=== PATIENT | female | born 1950 | race Caucasian/White ===

== ENCOUNTER 2016-07-25 16:58 | Emergency (ER) | payer OTHER ==
[2016-07-25 17:27] VITALS: BP 133/84; PULSE 79; RESP 18; TEMP 97.9; O2SAT 98
[2016-07-25] MEDS ORDERED: Naproxen 550 mg Tab PO STA (18:11)
[2016-07-25] MEDS ORDERED: Naproxen 550 mg Tab PO ONE (18:13)
--- NOTE | 2016-07-25 18:14 | C.PDOC ---
History Of Present Illness 65 year old female presents to the ED seeking a refill for medications for mid- back pain from a fall in late March 2016. Patient states she was seen in [facility] for the initial injury and given naprosyn. She denies any recent trauma, abdominal pain, or any other complaints at this time. Time Seen by Provider: 07/25/16 17:40 Chief Complaint (Nursing): Back Pain History Per: Patient History/Exam Limitations: no limitations Onset/Duration Of Symptoms: Persistent Current Symptoms Are (Timing): Still Present Quality Of Discomfort: Aching Severity: Mild Previous Symptoms: Back Pain Associated Symptoms: denies: Incontinence, New Weakness, New Numbness Exacerbating Factor(s): Movement Past Medical History Reviewed: Historical Data, Nursing Documentation, Vital Signs Vital Signs: Last Vital Signs Temp 97.9 F 07/25/16 17:25 Pulse 79 07/25/16 17:25 Resp 18 07/25/16 17:25 BP 133/84 07/25/16 17:25 Pulse Ox 98 07/27/16 02:22 - Medical History PMH: CAD, HTN Surgical History: Appendectomy, CABG (9 years ago) Family History: States: Unknown Family Hx - Social History Hx Alcohol Use: No Hx Substance Use: No - Immunization History Hx Tetanus Toxoid Vaccination: Yes Hx Influenza Vaccination: Yes Hx Pneumococcal Vaccination: Yes Review Of Systems Constitutional: Negative for: Fever, Chills, Sweats Gastrointestinal: Negative for: Nausea, Vomiting, Abdominal Pain, Diarrhea Musculoskeletal: Positive for: Back Pain (mid-back pain) Physical Exam - Physical Exam Appears: Non-toxic, No Acute Distress Skin: Warm, Dry Head: Normacephalic Eye(s): bilateral: PERRL, EOMI Ear(s): Bilateral: Normal Neck: Normal ROM Chest: Symmetrical, No Deformity Cardiovascular: Rhythm Regular Respiratory: No Accessory Muscle Use, No Rales, No Rhonchi, No Stridor, No Wheezing Gastrointestinal/Abdominal: Soft, No Tenderness, No Distention, No Guarding, No Rebound Back: Paraspinal Tenderness, Other (parathoracic ) Extremity: Normal ROM, No Tenderness Neurological/Psych: Oriented x3 ED Course And Treatment O2 Sat by Pulse Oximetry: 98 (on RA) Pulse Ox Interpretation: Normal Medical Decision Making Medical Decision Making: On re-exam, the patient reports improvement of symptoms. Lungs are CTA, heart is RRR, ambulatory in the ED with steady gait. Disposition - Disposition Referrals: Pat Peralta MD [Staff Provider] - Disposition: HOME/ ROUTINE Disposition Time: 18:47 Condition: GOOD Additional Instructions: Follow up with the medical doctor within 1-2 days. Return if worsened, Prescriptions: Cyclobenzaprine [Flexeril] 5 mg PO TID #21 tab Naproxen [Naprosyn] 500 mg PO BID #20 tab Instructions: Acute Low Back Pain (ED) Print Language: SAUDI ARABIAN - Clinical Impression Clinical Impression: Low back pain - Scribe Statement The provider has reviewed the documentation as recorded by the Scribe Lenore Cortez All medical record entries made by the Madanibe were at my direction and personally dictated by me. I have reviewed the chart and agree that the record accurately reflects my personal performance of the history, physical exam, medical decision making, and the department course for this patient. I have also personally directed, reviewed, and agree with the discharge instructions and disposition.
== END 2016-07-25 18:59 | disposition home or self-care (01) ==
LOC: C.ER 16:58
DX: M54.5 Low back pain (principal)

== ENCOUNTER 2016-09-21 13:17 | Emergency (ER) | payer MEDICAID, OTHER ==
[2016-09-21 13:26] VITALS: PULSE 78; TEMP 98.2
[2016-09-21] MEDS ORDERED: Naproxen 550 mg Tab PO STA (14:10)
[2016-09-21] MEDS ORDERED: Naproxen 550 mg Tab PO ONE (14:14)
--- NOTE | 2016-09-21 14:34 | RAD ---
HISTORY: upper back pain COMPARISON: 01/28/2015 TECHNIQUE: Chest PA and lateral FINDINGS: LUNGS: Biapical pleural thickening with upper lobe granulomatous changes. Diffuse increased interstitial lung markings. Few scattered nodular densities in both lungs most prominent in the upper lung zones. Right hilar prominence. No gross focal infiltrate or effusion. PLEURA: No significant pleural effusion identified. No pneumothorax apparent. CARDIOVASCULAR: Status post median sternotomy. OSSEOUS STRUCTURES: Degenerative changes in the spine and shoulders. VISUALIZED UPPER ABDOMEN: Normal. OTHER FINDINGS: None. IMPRESSION: Biapical pleural thickening with upper lobe granulomatous changes. Diffuse increased interstitial lung markings. Few scattered nodular densities in both lungs most prominent in the upper lung zones. Right hilar prominence. No gross focal infiltrate or effusion.
--- NOTE | 2016-09-21 14:39 | C.PDOC ---
History Of Present Illness 65 yr old female presents to the ER with complaints of right upper back pain, ongoing for 6 months. Patient states he fell and has been seen several times for the same symptoms but has no follow up with Ortho "because the architectural draftsman didn' t sent me to one". Patient denies new falls, injury, fever, chest pain, SOB, nausea, vomiting, abdominal pain, weakness or numbness. Time Seen by Provider: 09/21/16 13:49 Chief Complaint (Nursing): Upper Extremity Problem/Injury History Per: Patient History/Exam Limitations: no limitations Onset/Duration Of Symptoms: Persistent (6 months ) Past Medical History Reviewed: Historical Data, Nursing Documentation, Vital Signs Vital Signs: Last Vital Signs Temp 98.2 F 09/21/16 14:44 Pulse 78 09/21/16 14:44 Resp 18 09/21/16 14:44 BP 140/76 09/21/16 14:44 Pulse Ox 98 09/21/16 15:09 - Medical History PMH: CAD, HTN Surgical History: Appendectomy, CABG (9 years ago) Family History: States: No Known Family Hx - Social History Hx Alcohol Use: No Hx Substance Use: No - Immunization History Hx Tetanus Toxoid Vaccination: Yes Hx Influenza Vaccination: Yes Hx Pneumococcal Vaccination: Yes Review Of Systems Except As Marked, All Systems Reviewed And Found Negative. Constitutional: Negative for: Fever Cardiovascular: Negative for: Chest Pain Respiratory: Negative for: Shortness of Breath Gastrointestinal: Negative for: Nausea, Vomiting, Abdominal Pain Musculoskeletal: Positive for: Back Pain (Right upper back pain ) Neurological: Negative for: Weakness, Numbness Physical Exam - Physical Exam Appears: Non-toxic, No Acute Distress Skin: Warm, Dry, No Rash Head: Atraumatic, Normacephalic Oral Mucosa: Moist Neck: Normal, Normal ROM, Supple Chest: Symmetrical, No Tenderness Cardiovascular: Rhythm Regular, No Murmur Respiratory: Normal Breath Sounds, No Rales, No Rhonchi, No Stridor, No Wheezing Gastrointestinal/Abdominal: Normal Exam, Soft, No Tenderness, No Guarding, No Rebound Back: Paraspinal Tenderness (Right thoracic paraspinal tenderness around T3 & T4 area. ) Extremity: Normal ROM (Right shoulder ), Capillary Refill (<2), No Deformity, No Swelling Neurological/Psych: Oriented x3, Normal Speech, Normal Motor ED Course And Treatment O2 Sat by Pulse Oximetry: 98 - Other Rad CXR X-Ray: Viewed By Me, Read By Radiologist Interpretation: HISTORY: upper back pain. COMPARISON: 01/28/2015. TECHNIQUE : Chest PA and lateral. FINDINGS: LUNGS: Biapical pleural thickening with upper lobe granulomatous changes. Diffuse increased interstitial lung markings. Few scattered nodular densities in both lungs most prominent in the upper lung zones. Right hilar prominence. No gross focal infiltrate or effusion. PLEURA: No significant pleural effusion identified. No pneumothorax apparent. CARDIOVASCULAR: Status post median sternotomy. OSSEOUS STRUCTURES: Degenerative changes in the spine and shoulders. VISUALIZED UPPER ABDOMEN: Normal. OTHER FINDINGS: None. IMPRESSION: Biapical pleural thickening with upper lobe granulomatous changes. Diffuse increased interstitial lung markings. Few scattered nodular densities in both lungs most prominent in the upper lung zones. Right hilar prominence. No gross focal infiltrate or effusion. Medical Decision Making Medical Decision Making: PLAN: * CXR * Naproxen PO Disposition Counseled Patient/Family Regarding: Studies Performed, Diagnosis, Need For Followup, Rx Given - Disposition Referrals: [facility] [Outside] [facility] [Outside] Fabian Weems III, MD [Staff Provider] - Disposition: HOME/ ROUTINE Disposition Time: 14:40 Condition: STABLE Additional Instructions: USTED NECESITA SEGUIR CON LA ORTOPEDIA PARA LA EVALUACIN ADICIONAL USE MEDICAMENTOS PARA EL DOLOR DEVUELVA A LA MERLY DE EMERGENCIA SI LOS SNTOMAS EMPEORARAN Prescriptions: Naproxen [Naprosyn Tab] 375 mg PO BID PRN #20 tab PRN Reason: pain Instructions: Chronic Back Pain (ED) Print Language: AZERBAIJANI - POA Present On Arrival: None - Clinical Impression Clinical Impression: Chronic upper back pain - Scribe Statement The provider has reviewed the documentation as recorded by the Scribe Kristen Zavala Provider Attestation: All medical record entries made by the Scribe were at my direction and personally dictated by me. I have reviewed the chart and agree that the record accurately reflects my personal performance of the history, physical exam, medical decision making, and the department course for this patient. I have also personally directed, reviewed, and agree with the discharge instructions and disposition.
[2016-09-21 14:44] VITALS: BP 140/76; RESP 18
[2016-09-21 15:10] VITALS: O2SAT 98
== END 2016-09-21 14:44 | disposition home or self-care (01) ==
LOC: C.ER 13:17
DX: M54.9 Dorsalgia, unspecified (principal); G89.29 Other chronic pain; I10 Essential (primary) hypertension

== ENCOUNTER 2017-05-27 12:40 | Emergency (ER) | payer SELFPAY ==
[2017-05-27] MEDS ORDERED: Albuterol-Ipratrop 3 mg / 0.5 (3 ml) UD IH STA (13:08)
[2017-05-27] MEDS ORDERED: Sodium Chloride 0.9% 1,000 ML IV ONE (13:08)
--- NOTE | 2017-05-27 13:10 | C.PDOC ---
History Of Present Illness 66 y/o female presents to ED with complaints of 10 day history of "flu-like symptoms" including fever, headache, cough and congestion. Yannick reports she has been self medicating for symptoms and overall feels better. However, she complains the cough is still present and also complains of upper back pain for 4 days. She states she does have back problems after injury one year ago. Patient has not seen PMD for symptoms secondary to insurance issues. Denies chest pain or SOB. Time Seen by Provider: 05/27/17 12:59 Chief Complaint (Nursing): Flu-like Symptoms History Per: Patient History/Exam Limitations: no limitations Onset/Duration Of Symptoms: Days Current Symptoms Are (Timing): Still Present Associated Symptoms: Fever, Cough, Nasal Congestion, Nausea Past Medical History Reviewed: Historical Data, Nursing Documentation, Vital Signs Vital Signs: Last Vital Signs Temp 98.1 F 05/27/17 15:37 Pulse 68 05/27/17 15:37 Resp 20 05/27/17 15:37 BP 150/78 05/27/17 15:37 Pulse Ox 99 05/27/17 15:37 - Medical History PMH: CAD, HTN Surgical History: Appendectomy, CABG (9 years ago) Family History: States: No Known Family Hx - Social History Hx Alcohol Use: No Hx Substance Use: No - Immunization History Hx Tetanus Toxoid Vaccination: Yes Hx Influenza Vaccination: Yes Hx Pneumococcal Vaccination: Yes Review Of Systems Constitutional: Positive for: Fever. Negative for: Chills ENT: Positive for: Nose Congestion. Negative for: Ear Pain, Throat Pain Cardiovascular: Negative for: Chest Pain, Palpitations Respiratory: Positive for: Cough. Negative for: Shortness of Breath, Sputum Gastrointestinal: Negative for: Nausea, Vomiting, Abdominal Pain Genitourinary: Negative for: Dysuria, Hematuria Musculoskeletal: Positive for: Back Pain Skin: Negative for: Rash Neurological: Positive for: Headache Physical Exam - Physical Exam Appears: Non-toxic, No Acute Distress Skin: Warm, Dry, No Rash Head: Atraumatic, Normacephalic Eye(s): bilateral: Normal Inspection, EOMI Ear(s): Bilateral: Normal (no erythema) Nose: Normal Oral Mucosa: Moist Throat: Normal, No Erythema, No Exudate Neck: Normal ROM, Supple Chest: Symmetrical Cardiovascular: Rhythm Regular, No Murmur Respiratory: Normal Breath Sounds, No Rales, No Rhonchi, No Wheezing Gastrointestinal/Abdominal: Soft, No Tenderness, No Guarding, No Rebound Back: Normal Inspection, No CVA Tenderness, No Vertebral Tenderness, No Paraspinal Tenderness Extremity: Bilateral: Atraumatic, No Pedal Edema, Normal Color And Temperature, Normal ROM Neurological/Psych: Oriented x3, Normal Speech Gait: Steady ED Course And Treatment - Laboratory Results Result Diagrams: 05/27/17 14:05 05/27/17 14:05 Lab Interpretation: No Acute Changes ECG: Interpreted By Me, Viewed By Me ECG Interpretation: No Acute Changes Rate From EC O2 Sat by Pulse Oximetry: 98 (RA) Pulse Ox Interpretation: Normal - Other Rad CXR X-Ray: Viewed By Me, Read By Radiologist Interpretation: HISTORY: SOB. COMPARISON: Chest x-ray performed 09/21/16. TECHNIQUE: Chest PA and lateral. FINDINGS: LUNGS: No focal consolidation. Please note that chest x-ray has limited sensitivity for the detection of pulmonary masses. PLEURA: No significant pleural effusion identified. No definite pneumothorax . CARDIOVASCULAR: Median sternotomy wires. Heart size appears within normal limits. OSSEOUS STRUCTURES: Mild degenerative changes of the spine. VISUALIZED UPPER ABDOMEN: Unremarkable. OTHER FINDINGS: None. IMPRESSION: No focal consolidation identified. Medical Decision Making Medical Decision Making: Impression: Flu like illness, r.o pneumonia Plan: ECG, CXR, Blood work, UA ordered. Neb treatment administered Progress: Patient treated with nebulizer treatment. All diagnostics reviewed. CXR shows no infiltrates. Labs show no leukocytosis. Patient remained afebrile in no respiratory distress. Patient reports improvement of symptoms. Patient feels comfortable going home and will be discharged. Patient given follow up instructions. Instructed to return to ER if symptoms worsen or new symptoms arise. Disposition Counseled Patient/Family Regarding: Diagnosis, Need For Followup, Rx Given - Disposition Referrals: [facility]Outside[facility]] Disposition: HOME/ ROUTINE Disposition Time: 15:23 Condition: STABLE Additional Instructions: Vaya a ruiz mdico o la clnica en 2-5 parra sin falta, para mas evaluacin. [place] los medicamentos abhilash indicado. Volver a la naresh de emergencia en cualquier momento si los sntomas persisten o empeoran Prescriptions: Albuterol HFA [Ventolin HFA 90 mcg/actuation (8 g)] 1 puff IH Q4 #1 puff Benzonatate [Tessalon Perles] 100 mg PO TID #30 sgl Instructions: Upper Respiratory Infection (ED) Forms: [employer]vive (Luxembourgish) Print Language: SAUDI ARABIAN - POA Present On Arrival: None - Clinical Impression Clinical Impression: Influenza-like illness - PA / BUSINESS CONTINUITY STRATEGY DIRECTOR / Resident Statement MD/DO has reviewed & agrees with the documentation as recorded. - Scribe Statement The provider has reviewed the documentation as recorded by the Madaniblizette Miguel All medical record entries made by the Ovidio were at my direction and personally dictated by me. I have reviewed the chart and agree that the record accurately reflects my personal performance of the history, physical exam, medical decision making, and the department course for this patient. I have also personally directed, reviewed, and agree with the discharge instructions and disposition.
[2017-05-27] MEDS ORDERED: Albuterol-Ipratrop 3 mg / 0.5 (3 ml) UD ONE (13:15)
[2017-05-27] MEDS ORDERED: Sodium Chloride 0.9% 1,000 ML ONE (13:15)
--- NOTE | 2017-05-27 13:27 | RAD ---
HISTORY: SOB COMPARISON: Chest x-ray performed 09/21/16 TECHNIQUE: Chest PA and lateral FINDINGS: LUNGS: No focal consolidation. Please note that chest x-ray has limited sensitivity for the detection of pulmonary masses. PLEURA: No significant pleural effusion identified. No definite pneumothorax . CARDIOVASCULAR: Median sternotomy wires. Heart size appears within normal limits. OSSEOUS STRUCTURES: Mild degenerative changes of the spine. VISUALIZED UPPER ABDOMEN: Unremarkable. OTHER FINDINGS: None. IMPRESSION: No focal consolidation identified.
[2017-05-27 14:15] LABS: BASO % 0.8 % (0.0-2.0); EOS # 0.1 K/uL (0.0-0.7); EOS % 1.5 % (0.0-4.0); HEMOGLOBIN 12.8 g/dL (11.0-16.0); LYMPH # 1.5 K/uL (1.0-4.3); LYMPH % 28.2 % (20.0-40.0); MEAN CELL VOLUME 86.6 fL (81.0-99.0); MEAN CORPUSCULAR HEMOGLOBIN 29.1 pg (27.0-31.0); MEAN CORPUSCULAR HGB CONC 33.6 g/dL (33.0-37.0); MEAN PLATELET VOLUME 10.2 fL (7.2-11.7); MONO # 0.4 K/uL (0.0-0.8); MONO % 6.9 % (0.0-10.0); NEUT # 3.3 K/uL (1.8-7.0); NEUT % 62.6 % (50.0-75.0); NRBC % 0.1 % (0.0-2.0); RBC 4.42 Mil/uL (3.80-5.20); RED CELL DISTRIBUTION WIDTH 14.3 % (11.5-14.5); WHITE BLOOD COUNT 5.3 K/uL (4.8-10.8)
[2017-05-27 14:25] LABS: ALB/GLOB RATIO 1.1 (1.0-2.1); ALBUMIN 4.3 g/dL (3.5-5.0); ALT/SGPT 27 U/L (9-52); AST/SGOT 23 U/L (14-36); BLOOD UREA NITROGEN 15 mg/dL (7-17); CALCIUM 9.5 mg/dl (8.6-10.4); GFR AFRICAN-AMERICAN > 60; GFR NON-AFRICAN AMERICAN > 60
[2017-05-27 14:33] LABS: B-TYPE NATRIURETIC PEPTIDE 153 pg/mL (0-900)
[2017-05-27 15:38] LABS: SQUAMOUS EPITHIAL 3 /hpf (0-5); URINE BILIRUBIN NEGATIVE (NEGATIVE); URINE BLOOD NEGATIVE (NEGATIVE); URINE CLARITY Clear (Clear); URINE COLOR Straw (YELLOW); URINE GLUCOSE (UA) NORMAL (Normal); URINE LEUKOCYTE ESTERASE NEG Leu/uL (Negative); URINE NITRATE NEGATIVE (NEGATIVE); URINE PROTEIN NEGATIVE (NEGATIVE); URINE UROBILINOGEN NORMAL mg/dL (0.2-1.0)
[2017-05-27 15:39] VITALS: BP 150/78; PULSE 68; RESP 20; TEMP 98.1
[2017-05-27 17:23] VITALS: O2SAT 98
--- NOTE | 2017-05-28 16:37 | CARD ---
APPROVED REPORT EKG Measurement Heart [id number] <Conclusion> Normal sinus rhythm Possible Anterior infarct, age undetermined Abnormal ECG
== END 2017-05-27 15:53 | disposition home or self-care (01) ==
LOC: C.ER 12:40
DX: J11.1 Influenza due to unidentified influenza virus with other respiratory manifestations (principal); I10 Essential (primary) hypertension; I25.10 Atherosclerotic heart disease of native coronary artery without angina pectoris
CPT/HCPCS: 71046; 80053; 81001; 83880; 85025; 93005; 94640; 96361; 96374; 99284; J2405; J7040

== ENCOUNTER 2018-01-24 09:47 | Emergency (ER) | payer MEDICARE ==
[2018-01-24 09:55] VITALS: BMI 26.6
[2018-01-24 09:57] VITALS: BP 150/79; PULSE 74; RESP 16; TEMP 97.5; O2SAT 96
--- NOTE | 2018-01-24 10:14 | C.PDOC ---
History Of Present Illness 67 year old female presents to ED complaining of vaginal itch x2 days. Denies discomfort, rash, fever, chills, dysuria, vaginal discharge. VAG ITCH X 2 DAYS. NO DC, RASH OTHER ASSOC SX EXAM NAD +MILD IRRITATION EXT VAG, W LOCAL ERYTHEMA NONBLANCHING. TINEA? NO DC. NO LESIONS, SORES. INTACT REMAINDER NEG Time Seen by Provider: 01/24/18 10:05 Chief Complaint (Nursing): Female Genitourinary History Per: Patient History/Exam Limitations: no limitations Onset/Duration Of Symptoms: Days Current Symptoms Are (Timing): Still Present Past Medical History Reviewed: Historical Data, Nursing Documentation, Vital Signs Vital Signs: Last Vital Signs Temp 97.5 F L 01/24/18 09:54 Pulse 74 01/24/18 09:54 Resp 16 01/24/18 09:54 BP 150/79 01/24/18 09:54 Pulse Ox 96 01/24/18 09:54 - Medical History PMH: CAD, HTN (denies) Surgical History: Appendectomy, CABG (9 years ago), Cholecystectomy Family History: States: No Known Family Hx - Social History Hx Alcohol Use: No Hx Substance Use: No - Immunization History Hx Tetanus Toxoid Vaccination: Yes Hx Influenza Vaccination: No Hx Pneumococcal Vaccination: No Review Of Systems Except As Marked, All Systems Reviewed And Found Negative. Constitutional: Negative for: Fever, Chills Cardiovascular: Negative for: Chest Pain Respiratory: Negative for: Cough, Shortness of Breath Gastrointestinal: Negative for: Nausea, Vomiting, Diarrhea Genitourinary: Positive for: Other (Vaginal itching x2 days). Negative for: Dysuria, Vaginal Discharge Skin: Negative for: Rash Neurological: Negative for: Weakness, Numbness Physical Exam - Physical Exam Appears: Non-toxic, No Acute Distress Skin: Warm, Dry Head: Atraumatic, Normacephalic Eye(s): bilateral: PERRL, EOMI Oral Mucosa: Moist Neck: Supple Chest: Symmetrical, No Deformity Cardiovascular: Rhythm Regular Respiratory: Normal Breath Sounds, No Rales, No Rhonchi, No Wheezing, Other (NARD) Gastrointestinal/Abdominal: Soft, No Tenderness Pelvic: Other (Mild irritation around vaginal area with localized erythema, nonblanching. Possible tinea, no discomfort, lesions, or sores.) Extremity: Normal ROM Neurological/Psych: Oriented x3, Normal Speech, Normal Cognition Gait: Steady ED Course And Treatment O2 Sat by Pulse Oximetry: 96 (RA) Pulse Ox Interpretation: Normal Disposition Counseled Patient/Family Regarding: Diagnosis, Need For Followup, Rx Given - Disposition Referrals: [facility] [Outside] [facility] [Outside] Disposition: HOME/ ROUTINE Disposition Time: 10:12 Condition: GOOD Prescriptions: Clotrimazole/Betamethasone [Lotrisone] 1 gm EXT BID #1 tube Instructions: Jock Itch (DC) Forms: Tk20 (Belarusian) Print Language: EQUATORIAL GUINEAN - Clinical Impression Clinical Impression: Tinea corporis - Scribe Statement The provider has reviewed the documentation as recorded by the Ovidio Webster Augie Provider Attestation: All medical record entries made by the Ovidio were at my direction and personally dictated by me. I have reviewed the chart and agree that the record accurately reflects my personal performance of the history, physical exam, medical decision making, and the department course for this patient. I have also personally directed, reviewed, and agree with the discharge instructions and disposition.
== END 2018-01-24 10:22 | disposition home or self-care (01) ==
LOC: C.ER 09:47
DX: B35.4 Tinea corporis (principal)

== ENCOUNTER 2018-02-04 22:34 | Emergency (ER) | payer MEDICARE ==
[2018-02-04 22:35] VITALS: BMI 26.6
[2018-02-04] MEDS ORDERED: Sodium Chloride 0.9% 1,000 ML IV ONE (23:01)
--- NOTE | 2018-02-04 23:05 | C.PDOC ---
History Of Present Illness 67 y/o female presents to the ED complaining of diffuse lower abdominal cramping, onset after consuming floral tea with milk today. Associated with nausea, a few episodes of vomiting, and diarrhea. She notes the cramping gets worse just prior to the diarrhea. No sick contacts. No recent travel. Otherwise patient denies any fever, chills, bloody stools, or other complaints. Time Seen by Provider: 02/04/18 22:55 Chief Complaint (Nursing): Abdominal Pain History Per: Patient History/Exam Limitations: no limitations Onset/Duration Of Symptoms: Hrs Current Symptoms Are (Timing): Still Present Location Of Pain/Discomfort: Diffuse Quality Of Discomfort: Cramping Associated Symptoms: Nausea, Vomiting, Diarrhea Past Medical History Reviewed: Historical Data, Nursing Documentation, Vital Signs Vital Signs: Last Vital Signs Temp 98.3 F 02/04/18 22:43 Pulse 97 H 02/04/18 22:43 Resp 20 02/04/18 22:43 BP 141/84 02/04/18 22:43 Pulse Ox 97 02/04/18 22:43 - Medical History PMH: CAD, HTN (denies) Surgical History: Appendectomy, CABG (9 years ago), Cholecystectomy Family History: States: Unknown Family Hx - Social History Hx Alcohol Use: No Hx Substance Use: No - Immunization History Hx Tetanus Toxoid Vaccination: Yes Hx Influenza Vaccination: No Hx Pneumococcal Vaccination: No Review Of Systems Except As Marked, All Systems Reviewed And Found Negative. Constitutional: Negative for: Fever, Chills Gastrointestinal: Positive for: Nausea, Vomiting, Abdominal Pain, Diarrhea. Negative for: Hematochezia, Hematemesis Genitourinary: Negative for: Dysuria, Frequency, Hematuria Physical Exam - Physical Exam Appears: Well, Non-toxic, No Acute Distress Skin: Warm, Dry Head: Atraumatic, Normacephalic Eye(s): bilateral: Normal Inspection, PERRL, EOMI Neck: Normal ROM Chest: Symmetrical Cardiovascular: Rhythm Regular, No Murmur Respiratory: Normal Breath Sounds, No Accessory Muscle Use Gastrointestinal/Abdominal: Bowel Sounds (normal), Soft, No Tenderness, No Guarding, No Rebound Back: No CVA Tenderness, No Vertebral Tenderness Extremity: Bilateral: Atraumatic, Normal Color And Temperature, Normal ROM Neurological/Psych: Oriented x3, Normal Speech ED Course And Treatment - Laboratory Results Result Diagrams: 02/04/18 23:45 02/04/18 23:45 Lab Interpretation: Abnormal (BUN 20, Lipase 330, CBC nl) O2 Sat by Pulse Oximetry: 97 (RA) Pulse Ox Interpretation: Normal Reevaluation Time: 00:35 Reassessment Condition: Improved (after IV fluids and Bentyl and Zofran) Medical Decision Making Medical Decision Making: Initial Plan: --Blood work --UA --IV fluids --Zofran 4 mg IV --Bentyl 20 mg IM --Reassess and dispo Disposition Counseled Patient/Family Regarding: Studies Performed, Diagnosis, Need For Followup, Rx Given - Disposition Referrals: [facility] [Outside] Disposition: HOME/ ROUTINE Disposition Time: 00:36 Condition: IMPROVED Prescriptions: Dicyclomine [Bentyl] 20 mg PO QID PRN #20 tab PRN Reason: Pain, Moderate (4-7) Ondansetron ODT [Zofran ODT] 1 odt PO QID PRN #10 odt PRN Reason: Nausea/Vomiting Instructions: Viral Gastroenteritis Forms: [employer] (Cape Verdean) Print Language: TURKMEN - Clinical Impression Clinical Impression: Vomiting, Diarrhea, Abdominal pain - Scribe Statement The provider has reviewed the documentation as recorded by the Scribe (Keiry Aly) Provider Attestation: All medical record entries made by the Scribe were at my direction and per sonally dictated by me. I have reviewed the chart and agree that the record accurately reflects my personal performance of the history, physical exam, medical decision making, and the department course for this patient. I have also personally directed, reviewed, and agree with the discharge instructions and disposition.
[2018-02-04 23:48] LABS: BASO % 0.3 % (0.0-2.0); EOS # 0.1 K/uL (0.0-0.7); EOS % 0.9 % (0.0-4.0); HEMOGLOBIN 13.6 g/dL (11.0-16.0); LYMPH # 0.6 K/uL (1.0-4.3); LYMPH % 8.9 % (20.0-40.0); MEAN CELL VOLUME 87.5 fL (81.0-99.0); MEAN CORPUSCULAR HGB CONC 33.2 g/dL (33.0-37.0); MEAN PLATELET VOLUME 9.7 fL (7.2-11.7); MONO # 0.3 K/uL (0.0-0.8); MONO % 4.8 % (0.0-10.0); NEUT # 5.9 K/uL (1.8-7.0); NEUT % 85.1 % (50.0-75.0); NRBC % 0.1 % (0.0-2.0); PLATELET COUNT 180 K/uL (130-400); RBC 4.69 Mil/uL (3.80-5.20); RED CELL DISTRIBUTION WIDTH 14.6 % (11.5-14.5); WHITE BLOOD COUNT 6.9 K/uL (4.8-10.8)
[2018-02-04] MEDS ORDERED: Sodium Chloride 0.9% 1,000 ML ONE (23:57)
[2018-02-04 23:59] LABS: ALB/GLOB RATIO 1.3 (1.0-2.1); ALBUMIN 4.6 g/dL (3.5-5.0); ALT/SGPT 24 U/L (9-52); AST/SGOT 19 U/L (14-36); BLOOD UREA NITROGEN 20 mg/dL (7-17); CALCIUM 9.3 mg/dl (8.6-10.4); GFR NON-AFRICAN AMERICAN > 60; LIPASE 330 U/L (23-300)
[2018-02-05 00:16] LABS: SQUAMOUS EPITHIAL 11 /hpf (0-5); URINE BACTERIA RARE (<OCC); URINE BILIRUBIN NEGATIVE (NEGATIVE); URINE CLARITY Hazy (Clear); URINE COLOR Yellow (YELLOW); URINE GLUCOSE (UA) NORMAL (Normal); URINE LEUKOCYTE ESTERASE 2+ Leu/uL (Negative); URINE PROTEIN NEGATIVE (NEGATIVE); URINE UROBILINOGEN NORMAL mg/dL (0.2-1.0)
[2018-02-05 00:30] LABS: URINE BLOOD NEGATIVE (NEGATIVE)
[2018-02-05 01:12] VITALS: BP 146/81; PULSE 69; RESP 18; TEMP 98.5; O2SAT 98
[2018-02-05 02:42] LABS: EOSINOPHIL 1 % (0-4); LYMPHOCYTE 9 % (20-40); MONOCYTE 5 % (0-10); NEUTROPHIL 85 % (50-75); PLATELET ESTIMATE NORMAL (NORMAL); TOTAL CELLS COUNTED 100
== END 2018-02-05 01:02 | disposition home or self-care (01) ==
LOC: C.ER 22:34
DX: R10.30 Lower abdominal pain, unspecified (principal); R11.10 Vomiting, unspecified; R19.7 Diarrhea, unspecified
CPT/HCPCS: 80053; 81001; 83690; 85025; 87086; 96361; 96372; 96374; 99284; J0500; J2405; J7030